=== PATIENT | male | born 1945 | race Caucasian/White ===

== ENCOUNTER → 2020-08-17 | Outpatient (CLI) | payer OTHER | END | disposition home or self-care (01) | LOC: CT 09:41 | PROVIDERS: ATTEND Nurse Practitioner Family | DX: J84.10 Pulmonary fibrosis, unspecified (principal); R91.8 Other nonspecific abnormal finding of lung field; D02.20 Carcinoma in situ of unspecified bronchus and lung ==

== ENCOUNTER → 2021-01-08 | Outpatient (CLI) | payer OTHER ==
[2021-01-08 08:24] LABS: CREATININE 0.86 mg/dL (0.70-1.30)
== END | disposition home or self-care (01) ==
LOC: LAB 07:54 → MRI 07:54
PROVIDERS: Radiology Diagnostic Radiology; ATTEND Nurse Practitioner Family
DX: I67.82 Cerebral ischemia (principal); C78.00 Secondary malignant neoplasm of unspecified lung

== ENCOUNTER → 2021-09-06 | Outpatient (CLI) | payer OTHER | END | disposition home or self-care (01) | LOC: CT 07:47 | PROVIDERS: ATTEND Nurse Practitioner Family | DX: R91.1 Solitary pulmonary nodule (principal); R91.8 Other nonspecific abnormal finding of lung field; J43.9 Emphysema, unspecified; J47.9 Bronchiectasis, uncomplicated ==

== ENCOUNTER → 2021-10-04 | Outpatient (CLI) | payer OTHER | END | disposition home or self-care (01) | LOC: CARD 01:07 | PROVIDERS: ATTEND Nurse Practitioner Family | DX: I35.8 Other nonrheumatic aortic valve disorders (principal) ==

== ENCOUNTER 2022-09-16 12:04 | Emergency (ER) | payer OTHER ==
[~2022-09-16] VITALS: Ht 172.7 cm; Wt 55.8 kg
[2022-09-16 12:58] LABS: BASO # 0.1 10*3/uL (0.0-0.1); BASO % 0.7 % (0.0-1.0); EOS # 0.1 10*3/uL (0.0-0.4); LYMPH % 14.4 % (27.0-41.0); MEAN CELL VOLUME 89.3 fl (80.0-94.0); MEAN CORPUSCULAR HGB CONC 32.4 g/dl (33.0-37.0); MEAN PLATELET VOLUME 8.9 fl (9.6-12.3); MONO # 0.8 10*3/uL (0.1-1.0); MONO % 10.8 % (3.0-9.0); NEUT # 5.1 10*3/uL (2.3-7.9); NEUT % 71.8 % (47.0-73.0); PLATELET COUNT AUTOMATED 246 10*3/uL (130-400); RED BLOOD COUNT 4.59 10*6/uL (4.50-5.90); RED CELL DISTRI WIDTH 15.2 % (0-14.5); WHITE BLOOD COUNT 7.1 10*3/uL (4.8-10.8)
[2022-09-16 13:11] LABS: ACT PARTIAL THROMBO TIME 30.8 SECONDS (20.0-32.1); INTERNATIONAL NORM RATIO 1.1 (2.0-3.5)
[2022-09-16 13:24] LABS: ALKALINE PHOSPHATASE 126 U/L (46-116); BUN 10 mg/dl (9-23); CHLORIDE 105 mmol/L (98-107); LIPASE 57 U/L (12-53); POTASSIUM 4.1 mmol/L (3.4-5.1); SGPT/ALT < 7 U/L (10-49); TOTAL PROTEIN 7.3 gm/dL (6.0-8.0)
[2022-09-16 20:46] VITALS: BP 137/68
== END 2022-09-16 21:57 | disposition short-term general hospital (02) ==
LOC: ED 12:04
PROVIDERS: Emergency Medicine
DX: R04.2 Hemoptysis (principal); E11.9 Type 2 diabetes mellitus without complications; I10 Essential (primary) hypertension

== ENCOUNTER → 2022-11-13 | Outpatient (CLI) | payer OTHER | END | disposition home or self-care (01) | LOC: CT 01:03 | PROVIDERS: ATTEND Family Medicine | DX: J43.9 Emphysema, unspecified (principal); R91.8 Other nonspecific abnormal finding of lung field; R59.9 Enlarged lymph nodes, unspecified; J92.9 Pleural plaque without asbestos ==

== ENCOUNTER 2024-10-31 23:53 | Emergency (ER) | payer OTHER ==
[~2024-10-31] VITALS: Ht 167.6 cm; Wt 64.4 kg
[2024-11-01] MEDS ORDERED: Albuterol Sulf/Ipratropium 3 ML VIAL NEB ONE ×3 (00:05→00:18)
[2024-11-01 00:28] LABS: MEAN CELL VOLUME 103.2 fl (80.0-94.0); MEAN CORPUSCULAR HGB 33.0 pg (27.0-31.0); MEAN PLATELET VOLUME 9.5 fl (9.6-12.3); NUCLEATED RED BLOOD CELL 0.0 10*3/uL (0.0-0.0); NUCLEATED RED BLOOD CELL 0.3 % (0.0-0.0); PLATELET COUNT AUTOMATED 221 10*3/uL (130-400); RED CELL DISTRI WIDTH 13.9 % (0-14.5)
[2024-11-01 00:41] LABS: MANUAL DIFF REFLEX YES
[2024-11-01 00:49] LABS: BUN 11 mg/dl (9-23); SGPT/ALT 27 U/L (5-49)
[2024-11-01 00:51] LABS: BASOPHILS 1 % (0-1); PLATELET SUFFICIENCY NORMAL (NORMAL)
[2024-11-01] MEDS ORDERED: PROPOFOL 50 ML IV SCH (01:05)
[2024-11-01] MEDS ORDERED: PROPOFOL 100 ML IV ONE (01:06)
[2024-11-01] MEDS ORDERED: ETOMIDATE 20 MG/10 ML VIAL IV ONE (09:34)
[2024-11-01 10:19] LABS: ABG O2 SATURATION 99.5 % (94.0-98.0); ARTERIAL BLOOD GAS PH 7.347 (7.350-7.450)
[2024-11-01 10:24] LABS: ABG BASE EXCESS -4.0 mmol/L (-2.0-3.0)
[2024-11-01 10:26] LABS: ARTERIAL BLOOD GAS PO2 510.2 mmHg (83.0-108.0)
[2024-11-01] MEDS ORDERED: Midazolam Hydrochloride 2 MG/2 ML VIAL IV ONE (15:45)
[2024-11-01 21:48] VITALS: BP 113/63
== END 2024-11-01 22:35 | disposition short-term general hospital (02) ==
LOC: ED 23:53
PROVIDERS: Emergency Medicine; Internal Medicine
DX: J93.9 Pneumothorax, unspecified (principal); J96.90 Respiratory failure, unspecified, unspecified whether with hypoxia or hypercapnia; R00.0 Tachycardia, unspecified; Z85.118 Personal history of other malignant neoplasm of bronchus and lung